=== PATIENT | male | born 1940 | race Caucasian/White ===

== ENCOUNTER → 2024-06-08 07:25 | Outpatient (REF) | payer MEDICARE, BC, SELFPAY | LOC: RAD 07:25 | PROVIDERS: ATTENDING PHYSICIAN Surgery Vascular Surgery; FAMILY PHYSICIAN Internal Medicine | DX: I71.43 Infrarenal abdominal aortic aneurysm, without rupture (principal) | CPT/HCPCS: 93922; 93925 ==

== ENCOUNTER 2024-08-13 22:30 | Emergency (ER) | payer MEDICARE, BC, SELFPAY ==
[2024-08-13 22:31] VITALS: BP 166/82
--- NOTE | 2024-08-14 00:04 | ED.SKININJ ---
HPI-Injury
General
Chief Complaint: Skin Surface Trauma
Source: patient
Exam Limitations: none
Time Seen by Provider: 08/13/24 23:53
Nursing documentation reviewed up to this point in time: agreed with except (Injuries to his sauceda not to his calf)
History of Present Illness-Injury
Is this injury a work related problem?: No
Is pt an associate of [facility]/[place]?: No
Initial Injury comments:
83-year-old male tripped into a to his step, few hours ago has a flap laceration to his left anterior sauceda unsure of his last tetanus, unable to control the bleeding at home
Past History
Past History
ED Past Surgical History: Negative Cardiac
Social History
Tobacco: Non-smoker
Alcohol: None
Drug: None
Personal:
Living: with family
Employment: Employed
Family History
Family History: Other (Contributory)
Review of Systems
Review of Systems
All Other Systems: Not applicable
Constitutional: Denies fever
Phy Exam
Physical Exam
Physical Exam:
Physical Exam
General: no apparent distress, not acutely ill
Neck: No jaundice
Lungs: no acute respiratory distress.
Neuro: alert and oriented. no focal neurological deficits
Skin: no rash
Psychiatric: well kept. interactive and cooperative
Extremities: 3 cm V-shaped flap laceration over the anterior sauceda on the left
Course
Orders/Labs/Results
Orders:
Orders
08/14/24 00:04
Tetanus/Diphth/Acelpertussis [Adacel] 0.5 ml IM .ONCE ONE
Vital Signs
Initial and Last Documented VS:
Initial Vital Signs
Temp Pulse Resp BP Pulse Ox
97.4 F 64 18 166/82 98
08/13/24 22:31 08/13/24 22:31 08/13/24 22:31 08/13/24 22:31 08/13/24 22:31
Last Documented Vital Signs
Temp Pulse Resp BP Pulse Ox
97.4 F 64 18 166/82 98
08/13/24 22:31 08/13/24 22:31 08/13/24 22:31 08/13/24 22:31 08/13/24 22:31
Procedures
Laceration Closure
Left Leg:
Status of Wound: clean
Size of Wound in cm: 3
Description of Wound Edges: flap-well vascularized
Preparation: cleaned with saline
Anesthesia: 1% Lidocaine
Wound exploration: explored to base- no FB
Type of Closure: single layer closure
Skin Closure Material: 4-0 nylon
Number of sutures: 4
Additional information:
Local anesthetic, copious irrigation, flap laceration wound loosely approximated defect covered
*Critical Care Note
Total Time (30-74mins, 75-104mins- exclusive of procedures): Not Applicable
Update Note
Update Note:
Update, wound closed, update tetanus, reviewed with patient may have a cosmetic defect at this part of the legs notorious for not healing well
ED Attending Note
-
Portions of this chart may have been created with voice recognition software.� Occasional wrong word or��sound alike� substitutions may have occurred due to the inherent limitations of voice recognition software.
Discharge Plan
Departure
Patient Disposition: Home (Routine Discharge)
Date of Disposition: 08/14/24
Time of Disposition: 00:26
Patient with high blood pressure during this ER visit?: No
Condition: Good
Discharge Problem:
Laceration
Instructions: [facility] for Wound Healing-Wounds, Laceration Repair With Stitches (DC), Wound Care (DC)
Referrals:
UNKNOWN - PT DOES,NOT KNOW [Family Provider] -
Activity Restrictions/Additional Instructions:
Keep wound covered,
Stitches out in 10 days by your primary care provider
Return to the ER if any concerns
Interventions
Interventions:
*Risk Screen - Suicide Last Done: 08/13/24 22:31
*General Assessment Last Done: 08/13/24 22:31
*Neglect/Abuse Screening Last Done: 08/13/24 22:31
*ED COVID-19 Vaccine History Last Done: 08/13/24 22:33
Discharge Date and Time
Print Language: GRENADIAN
[2024-08-14] MEDS: ADACEL 0.5 ML IM (00:27)
== END 2024-08-14 00:35 | disposition home or self-care (01) ==
LOC: EMR 22:30
PROVIDERS: EMERGENCY PHYSICIAN Emergency Medicine
DX: S81.812A Laceration without foreign body, left lower leg, initial encounter (principal); X58.XXXA Exposure to other specified factors, initial encounter; Z23 Encounter for immunization
CPT/HCPCS: 99282; 12002; 90471; 90715

== ENCOUNTER → 2024-08-28 07:40 | Outpatient (REF) | payer MEDICARE, BC, SELFPAY | LOC: WOUND 07:40 | PROVIDERS: ATTENDING PHYSICIAN Surgery; FAMILY PHYSICIAN Nurse Practitioner Family | DX: L97.222 Non-pressure chronic ulcer of left calf with fat layer exposed (principal); I10 Essential (primary) hypertension | CPT/HCPCS: 11042; 99203 ==

== ENCOUNTER → 2024-09-04 08:38 | Outpatient (REF) | payer MEDICARE, BC, SELFPAY | LOC: WOUND 08:38 | PROVIDERS: ATTENDING PHYSICIAN Surgery; FAMILY PHYSICIAN Nurse Practitioner Family | DX: L97.222 Non-pressure chronic ulcer of left calf with fat layer exposed (principal) | CPT/HCPCS: 11042 ==

== ENCOUNTER → 2024-09-15 11:09 | Outpatient (REF) | payer MEDICARE, BC, SELFPAY | LOC: WOUND 11:09 | PROVIDERS: ATTENDING PHYSICIAN Surgery; FAMILY PHYSICIAN Internal Medicine | DX: L97.222 Non-pressure chronic ulcer of left calf with fat layer exposed (principal); I10 Essential (primary) hypertension | CPT/HCPCS: 11042 ==

== ENCOUNTER → 2024-09-22 09:36 | Outpatient (REF) | payer MEDICARE, BC, SELFPAY | LOC: WOUND 09:36 | PROVIDERS: ATTENDING PHYSICIAN Surgery; FAMILY PHYSICIAN Internal Medicine | DX: L97.222 Non-pressure chronic ulcer of left calf with fat layer exposed (principal); I10 Essential (primary) hypertension | CPT/HCPCS: 11042 ==

== ENCOUNTER → 2024-10-06 09:07 | Outpatient (REF) | payer MEDICARE, BC, SELFPAY | LOC: WOUND 09:07 | PROVIDERS: ATTENDING PHYSICIAN Surgery; FAMILY PHYSICIAN Internal Medicine | DX: L97.222 Non-pressure chronic ulcer of left calf with fat layer exposed (principal); I10 Essential (primary) hypertension | CPT/HCPCS: 11042 ==

== ENCOUNTER → 2024-10-20 09:08 | Outpatient (REF) | payer MEDICARE, BC, SELFPAY | LOC: WOUND 09:08 | PROVIDERS: ATTENDING PHYSICIAN Surgery; FAMILY PHYSICIAN Internal Medicine | DX: L97.222 Non-pressure chronic ulcer of left calf with fat layer exposed (principal); I10 Essential (primary) hypertension | CPT/HCPCS: 11042 ==

== ENCOUNTER → 2024-10-27 09:07 | Outpatient (REF) | payer MEDICARE, BC, SELFPAY | LOC: WOUND 09:07 | PROVIDERS: ATTENDING PHYSICIAN Surgery; FAMILY PHYSICIAN Internal Medicine | DX: L97.222 Non-pressure chronic ulcer of left calf with fat layer exposed (principal); I10 Essential (primary) hypertension | CPT/HCPCS: 11042 ==

== ENCOUNTER → 2024-11-03 09:09 | Outpatient (REF) | payer MEDICARE, BC, SELFPAY | LOC: WOUND 09:09 | PROVIDERS: ATTENDING PHYSICIAN Surgery; FAMILY PHYSICIAN Internal Medicine | DX: L97.222 Non-pressure chronic ulcer of left calf with fat layer exposed (principal); I10 Essential (primary) hypertension | CPT/HCPCS: 11042 ==

== ENCOUNTER → 2024-11-17 13:32 | Outpatient (REF) | payer MEDICARE, BC, SELFPAY | LOC: WOUND 13:32 | PROVIDERS: ATTENDING PHYSICIAN Surgery; FAMILY PHYSICIAN Internal Medicine | DX: L97.222 Non-pressure chronic ulcer of left calf with fat layer exposed (principal); I10 Essential (primary) hypertension | CPT/HCPCS: 99212 ==